=== PATIENT | female | born 1955 | race Caucasian/White ===

== ENCOUNTER → 2016-12-05 | Outpatient (CLI) | payer BC ==
--- NOTE | 2016-12-05 10:00 | US ---
EXAMINATION TYPE: US kidneys/renal and bladder DATE OF EXAM: 12/05/2016 9:44 AM COMPARISON: NONE CLINICAL HISTORY: Hematuria N30.21,N39.0 UTI. Gross hematuria x 18 years when having UTI EXAM MEASUREMENTS: Right Kidney: 11.1 x 4.2 x 3.8cm Left Kidney: 10.8 x 4.2 x 5.2cm TECHNOLOGIST IMPRESSION: Right Kidney: wnl Left Kidney: wnl Bladder: wnl Bilateral Jets seen: yes There is no evidence for hydronephrosis at this point in time. No nephrolithiasis is seen. No lance s are identified on images saved. The urinary bladder is anechoic. Bilateral ureteral jets are seen during real-time scanning per technologist. IMPRESSION: Unremarkable study.
--- NOTE | 2016-12-05 10:33 | XR ---
EXAMINATION TYPE: XR KUB DATE OF EXAM ORDERED: 12/05/2016 10:14 AM HISTORY: N39.0 UTI. COMPARISON: None. FINDINGS: There has been a previous cholecystectomy. There is a dropped clip within the left hemipel vis. The abdominal gas pattern is normal. There is no evidence of obstruction or free air. There are phleb oliths and other vascular calcifications within the pelvis. IMPRESSION: NO ACUTE INTRA-ABDOMINAL ABNORMALITY.
== END | disposition home or self-care (01) ==
LOC: RADUSWWP 09:03
PROVIDERS: ATTEND Urology
DX: N39.0 Urinary tract infection, site not specified (principal); N30.21 Other chronic cystitis with hematuria
CPT/HCPCS: 74000; 76770